=== PATIENT | female | born 2000 | race Caucasian/White ===

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

== ENCOUNTER 2018-01-12 11:03 | Emergency (ER) | payer OTHER ==
[2018-01-12] MEDS ORDERED: Ondansetron INJ* 2 MG/ML VIAL IV ONE (11:37)
[2018-01-12] MEDS ORDERED: NS 0.9% 1000 ML* 1,000 ML IV ONE ×2 (11:37→13:25)
--- OUTSIDE RECORDS SUMMARY | 2018-01-12 11:48 | XMS REPORT | Continuity of Care Document ---
:2000 External Reference #:[id number] Author Name Tera Yates M.D. Address [address] [place] [address] Care Team Providers Name Role Phone Tera Yates MD Primary Care Physician Unavailable Payers Type Date Identification Numbers Payment Provider Subscriber Effective: Policy Number: [id number] Alverto Ogden 2015 [employer] PayID: [id number] [address] [address] [place] [address] Effective: 2013 Policy Number: [place] Megan Ogden [id number] Expires: 2013 PayID: [id number] [address] [address] [place] [address] Effective: 2014 Policy Number: [id number] Medicaid [place] Megan Ogden Expires: 2014 PayID: [id number] [address] [place] [address] Advance Directives Description No Information Available Problems Date Description Provider Status Onset: 02/14/2016 Headache Tera Yates M.D. Active Onset: 02/14/2016 Allergic rhinitis Tera Ytaes M.D. Active Family History Date Family Member(s) Problem(s) Comments Father No Current Problems Mother No Current Problems Social History Type Date Description Comments Sex Unknown Tobacco Use Start: Unknown Patient has never smoked Smoking Status Reviewed: 12/23/17 Patient has never smoked Allergies, Adverse Reactions, Alerts Description No Known Drug Allergies Medications Medication Date Status Form Strength Qnty SIG Indications Ordering Provider Mirena (52 MG) / Active IUD 20mcg/24HR Unknown 0000 Metronidazole 07/25/ Hx Tablets 500mg 30tabs 1 tablet Ana 2018 - three Raffa, 08/05/ times a M.D. 2017 day for 10 days for C. diff. infection . No Active 02/19/ Hx Unknown Medications 2016 - 2016 No Active 05/25/ Hx Unknown Medications 2016 - 2016 Cephalexin 05/20/ Hx Capsules 500mg 15caps 1 by R39.15 Paramjit 2017 - mouth Snedeker, 05/25/ three M.D. 2017 times a day for 5 days No Active 11/27/ Hx Unknown Medications 2014 - 2016 No Active 04/13/ Hx Unknown Medications 2014 - 2014 Keflex 04/13/ Hx Capsules 500mg 21caps 1 capsule 704.8 Rosalind 2014 - Hermelinda Meraz 11/26/ times a 2014 day for 7 days. Ibuprofen / Hx Tablets 200mg 4 tab at Unknown 0000 - 7:00am 2016 Medications Administered in Office Medication Date Status Form Strength Qnty SIG Indications Ordering Provider Immunization 02/19/ Administered Injection Tera GSunil Adminstration 2+ 2016 [place] Single Or M.DSunil Combination Immunization 02/19/ Administered Injection Tera G. Administration 2016 [place] Single Or M.DSunil Combination Immunization 02/13/ Administered Injection Tera G. Administration 2015 [place] Single Or M.DSunil Combination Immunization 01/17/ Administered Injection Tera G. Adminstration 2+ 2014 [place] Single Or M.DSunil Combination Immunization 01/17/ Administered Injection Tera G. Administration 2014 [place] Single Or M.D. Combination Immunization 04/13/ Administered Injection Rosalind Administration 2014 Hermelinda Meraz Single Or Combination Immunizations CPT Code Status Date Vaccine Lot # [id number] Given 02/19/2017 Flu Quadrivalent [id number] 93483 Given 02/19/2017 Meningococcal B Vaccine [id number] 42936 Given 02/14/2016 Flu Quadrivalent [id number] 74510 Given 01/17/2015 Menactra [id number] 90606 Given 01/17/2015 Flu Quadrivalent [id number] 90850 Given 04/13/2014 Flu Quadrivalent [id number] 74061 Given 02/19/2014 MMR Vaccine, Live, For Subcutaneous Use 52857 Given 12/30/2012 Influenza Virus Vaccine, Split Virus, 6-35 Months Age Intramuscul 28657 Given 12/30/2012 Gardasil 57199 Given 03/01/2012 Gardasil 02887 Given 12/29/2011 Gardasil 85470 Given 12/29/2011 Influenza Virus Vaccine, Split Virus, 6-35 Months Age Intramuscul 19561 Given 12/25/2010 Varicella (Chicken Pox) Vaccine 28252 Given 04/23/2009 Influenza Virus Vaccine, Pandemic Formulation, Live, Intranasal 03623 Given 12/20/2008 Varicella (Chicken Pox) Vaccine 37804 Given 12/20/2008 Tdap 69674 Given 12/21/2007 Menactra 59199 Given 12/21/2007 Hepatitis A Pediatric 45936 Given 12/15/2006 Hepatitis A Pediatric 16679 Given 02/20/2004 DTaP Vaccine Younger Than 7 46098 Given 02/20/2004 Polio Injectable 31215 Given 12/13/2001 DTaP Vaccine Younger Than 7 12282 Given 12/13/2001 Hib Vaccine 48827 Given 10/29/1999 Varicella (Chicken Pox) Vaccine 54928 Given 10/29/1999 MMR Vaccine, Live, For Subcutaneous Use 53084 Given 1998 Hepatitis B Vaccine Pediatric/Adolescent 70353 Given 1998 Polio Injectable 62276 Given 1998 DTaP Vaccine Younger Than 7 06031 Given 1998 Hib Vaccine 00922 Given 1998 Hib Vaccine 90955 Given 1998 DTaP Vaccine Younger Than 7 25194 Given 1998 Polio Injectable 28131 Given 1998 Hib Vaccine 07598 Given 1998 Hepatitis B Vaccine Pediatric/Adolescent 08218 Given 1998 Polio Injectable 28053 Given 1998 DTaP Vaccine Younger Than 7 18014 Given 1998 Hib Vaccine 37646 Given 1998 Hepatitis B Vaccine Pediatric/Adolescent Vital Signs Date Vital Result Comment 12/23/2017 9:14am Body Temperature 98.4 F Heart Rate 61 /min Respiratory Rate 12 /min BP Systolic 103 mmHg BP Diastolic 59 mmHg Weight 117.00 lb Weight 53.071 kg Height 66.5 inches 5'6.50" BMI (Body Mass Index) 18.6 kg/m2 Body Mass Index Percentile 11 % Height Percentile 81 % Weight Percentile 28th 12/18/2017 10:58am Body Temperature 97.6 F Heart Rate 126 /min Respiratory Rate 20 /min BP Systolic 113 mmHg BP Diastolic 77 mmHg Weight 112.00 lb Weight 50.803 kg Height 66.5 inches 5'6.50" BMI (Body Mass Index) 17.8 kg/m2 Body Mass Index Percentile 5 % Height Percentile 81 % Weight Percentile 08/06/2017 8:45am Body Temperature 98.8 F Heart Rate 72 /min Respiratory Rate 12 /min BP Systolic 98 mmHg BP Diastolic 62 mmHg Weight 110.50 lb Weight 50.123 kg Height 66.5 inches 5'6.50" BMI (Body Mass Index) 17.6 kg/m2 Body Mass Index Percentile 4 % Height Percentile 81 % Weight Percentile 07/24/2017 11:53am Body Temperature 98.2 F Heart Rate 77 /min Respiratory Rate 12 /min BP Systolic 115 mmHg BP Diastolic 71 mmHg Weight 109.69 lb Weight 49.754 kg Height 66.5 inches 5'6.50" BMI (Body Mass Index) 17.4 kg/m2 Body Mass Index Percentile 3 % Height Percentile 81 % Weight Percentile 02/19/2017 9:19am Body Temperature 98.7 F Heart Rate 61 /min Respiratory Rate 12 /min BP Systolic 94 mmHg BP Diastolic 63 mmHg Blood Pressure Percentile 0 % Weight 113.38 lb Weight 51.427 kg Height 66.5 inches 5'6.50" BMI (Body Mass Index) 18.0 kg/m2 Body Mass Index Percentile 7 % Height Percentile 81 % Weight Percentile 06/06/2016 4:05pm Body Temperature 98.6 F Heart Rate 76 /min Respiratory Rate 12 /min BP Systolic 113 mmHg BP Diastolic 68 mmHg Blood Pressure Percentile 0 % Weight 115.88 lb Weight 52.561 kg Height 66.5 inches 5'6.50" BMI (Body Mass Index) 18.4 kg/m2 Body Mass Index Percentile 12 % Height Percentile 81 % Weight Percentile 05/20/2016 11:39am Body Temperature 98.9 F Heart Rate 66 /min Respiratory Rate 12 /min BP Systolic 116 mmHg BP Diastolic 68 mmHg Blood Pressure Percentile 60 % Weight 118.69 lb Weight 53.837 kg Height 66.5 inches 5'6.50" BMI (Body Mass Index) 18.9 kg/m2 Body Mass Index Percentile 17 % Height Percentile 81 % Weight Percentile 39 02/14/2016 9:46am Body Temperature 98.6 F Heart Rate 67 /min Respiratory Rate 12 /min BP Systolic 107 mmHg BP Diastolic 69 mmHg Blood Pressure Percentile 27 % Weight 119.88 lb Weight 54.375 kg Height 66.25 inches 5'6.25" BMI (Body Mass Index) 19.2 kg/m2 Body Mass Index Percentile 22 % Height Percentile 79 % Weight Percentile 42nd 07/19/2015 9:51am Body Temperature 98.5 F Heart Rate 108 /min Respiratory Rate 16 /min BP Systolic 116 mmHg BP Diastolic 79 mmHg Blood Pressure Percentile 0 % Weight 113.00 lb Weight 51.257 kg Weight Percentile 3001/17/2015 11:16am Body Temperature 98.4 F Heart Rate 66 /min Respiratory Rate 12 /min BP Systolic 106 mmHg BP Diastolic 73 mmHg Blood Pressure Percentile 0 % Weight 113.19 lb Weight 51.342 kg Height 66.25 inches 5'6.25" BMI (Body Mass Index) 18.1 kg/m2 Body Mass Index Percentile 14 % Height Percentile 80 % Weight Percentile 3311/27/2014 2:08pm Body Temperature 98.3 F Heart Rate 72 /min Respiratory Rate 12 /min BP Systolic 92 mmHg BP Diastolic 60 mmHg Blood Pressure Percentile 2 % Weight 113.00 lb Weight 51.257 kg Height 66.25 inches 5'6.25" BMI (Body Mass Index) 18.1 kg/m2 Body Mass Index Percentile 14 % Height Percentile 80 % Weight Percentile 3404/13/2014 1:46pm Body Temperature 97.9 F Heart Rate 73 /min Respiratory Rate 12 /min BP Systolic 109 mmHg BP Diastolic 69 mmHg Blood Pressure Percentile 34 % Weight 112.00 lb Weight 50.803 kg Height 66.25 inches 5'6.25" BMI (Body Mass Index) 17.9 kg/m2 Body Mass Index Percentile 16 % Height Percentile 81 % Weight Percentile 3608/24/2013 1:00pm Heart Rate 70 /min Respiratory Rate 14 /min BP Systolic 97 mmHg BP Diastolic 67 mmHg Weight 109.62 lb Weight 49.714 kg 08/18/2013 1:00pm Heart Rate 85 /min Respiratory Rate 14 /min BP Systolic 101 mmHg BP Diastolic 71 mmHg Weight 111.31 lb Weight 50.485 kg 08/04/2013 1:00pm Heart Rate 69 /min Respiratory Rate 12 /min BP Systolic 109 mmHg BP Diastolic 74 mmHg Weight 107.69 lb Weight 48.852 kg 12/30/2012 1:00pm Heart Rate 73 /min Respiratory Rate 16 /min BP Systolic 111 mmHg BP Diastolic 75 mmHg Weight 106.69 lb Weight 48.398 kg Height 65.75 inches 04/12/2012 12:00pm Heart Rate 78 /min Respiratory Rate 18 /min BP Systolic 101 mmHg BP Diastolic 64 mmHg Weight 98.56 lb Weight 44.706 kg 03/15/2012 12:00pm Heart Rate 75 /min Respiratory Rate 12 /min BP Systolic 104 mmHg BP Diastolic 64 mmHg Weight 99.38 lb Weight 45.087 kg 01/27/2012 1:00pm Heart Rate 96 /min Respiratory Rate 16 /min BP Systolic 108 mmHg BP Diastolic 70 mmHg Weight 97.50 lb Weight 44.225 kg 01/06/2012 1:00pm Heart Rate 70 /min Respiratory Rate 20 /min BP Systolic 110 mmHg BP Diastolic 68 mmHg Weight 99.00 lb Weight 44.906 kg 01/02/2012 1:00pm Heart Rate 73 /min Respiratory Rate 12 /min BP Systolic 103 mmHg BP Diastolic 62 mmHg Weight 97.19 lb Weight 44.089 kg 12/29/2011 1:00pm Heart Rate 77 /min Respiratory Rate 12 /min BP Systolic 97 mmHg BP Diastolic 60 mmHg Weight 97.88 lb Weight 44.407 kg Height 64.75 inches 12/23/2011 1:00pm Heart Rate 85 /min Respiratory Rate 12 /min BP Systolic 111 mmHg BP Diastolic 69 mmHg Weight 99.19 lb Weight 44.996 kg 01/30/2011 1:00pm Heart Rate 81 /min Respiratory Rate 16 /min BP Systolic 105 mmHg BP Diastolic 63 mmHg Weight 92.88 lb Weight 42.139 kg 12/25/2010 1:00pm Heart Rate 80 /min Respiratory Rate 12 /min BP Systolic 100 mmHg BP Diastolic 68 mmHg Weight 91.00 lb Weight 41.277 kg Height 62.75 inches 04/23/2009 12:00pm Heart Rate 76 /min Respiratory Rate 16 /min BP Systolic 112 mmHg BP Diastolic 62 mmHg Weight 72.00 lb Weight 32.659 kg 12/20/2008 1:00pm Heart Rate 72 /min Respiratory Rate 20 /min BP Systolic 88 mmHg BP Diastolic 62 mmHg Weight 71.88 lb Weight 32.600 kg Height 56 inches 12/21/2007 1:00pm Heart Rate 72 /min Respiratory Rate 28 /min BP Systolic 82 mmHg BP Diastolic 60 mmHg Weight 64.00 lb Weight 29.030 kg Height 53.75 inches 12/15/2006 1:00pm Heart Rate 72 /min Respiratory Rate 24 /min BP Systolic 72 mmHg BP Diastolic 50 mmHg Weight 57.50 lb Weight 26.082 kg Height 51.75 inches 06/10/2006 12:00pm Heart Rate 86 /min Respiratory Rate 16 /min BP Systolic 90 mmHg BP Diastolic 60 mmHg Weight 55.00 lb Weight 24.948 kg 06/24/2005 12:00pm Heart Rate 84 /min Respiratory Rate 16 /min BP Systolic 98 mmHg BP Diastolic 62 mmHg Weight 50.50 lb Weight 22.906 kg Results Test Date Facility Test Result H/L Range Note Laboratory test 12/23/2017 [facility] .Glucose BLD 96 finding 10 [facility] [place] [address] [phone] .Urinalysis DIP 12/23/2017 [facility] Ua Color yellow Only [address] [place] [address] [phone] Ua Clarity clear Ua Glucose neg Ua Bilirubin neg Ua Ketones neg Ua Specific [place]ma 1.010 Ua Blood Qual neg Ua PH Test Strip 7 Ua Protein neg Ua Urobilinogen neg Ua Nitrate neg Ua Leukocytes ++ CBC Auto Diff 12/18/2017 [facility] White Blood 24.3 10^3/uL High 3.5-10.[address] [place] [address] Red Blood Count 4.69 10^6/uL 4.00-5.40 Hemoglobin 13.6 g/dL 12.0-16.0 Hematocrit 41 % 35-47 Mean Corpuscular Volume 87 fL 80-97 Mean Corpuscular Hemoglobin 29 pg 27-31 Mean Corpuscular HGB Conc 34 g/dL 31-36 Red Cell Distribution Width 13 % 10.5-15 Platelet Count 408 10^3/uL 150-450 Mean Platelet Volume 8.7 um3 7.4-10.4 Abs Neutrophils 22.1 10^3/uL High 1.5-7.7 Abs Lymphocytes 1.1 10^3/uL 1.0-4.8 Abs Monocytes 1.1 10^3/uL High 0-0.8 Abs Eosinophils 0 10^3/uL 0-0.6 Abs Basophils 0 10^3/uL 0-0.2 Abs Nucleated RBC 0 10^3/uL Granulocyte % 91.0 % High 38-83 Lymphocyte % 4.4 % Low 25-47 Monocyte % 4.5 % 0-7 Eosinophil % 0 % 0-6 Basophil % 0.1 % 0-2 Nucleated Red Blood Cells % 0.1 Comp Metabolic Panel 12/18/2017 [facility] Sodium 139 mmol/L 135-[address] [place] [address] Potassium 3.5 mmol/L 3.5-5.0 Chloride 104 mmol/L 101-111 Co2 Carbon Dioxide 22 mmol/L 22-32 Anion Gap 13 mmol/L High 2-11 Calcium 10.7 mg/dL High 8.6-10.3 Albumin 5.7 g/dL High 3.2-5.2 Total Bilirubin 1.60 mg/dL High 0.2-1.0 Glucose 148 mg/dL High 70-100 Blood Urea Nitrogen 14 mg/dL 6-24 Creatinine 0.80 mg/dL 0.51-0.95 BUN/Creatinine Ratio 17.5 8-20 Total Protein 8.4 g/dL 6.4-8.9 Globulin 2.7 g/dL 2-4 Albumin/Globulin Ratio 2.1 1-3 Alkaline Phosphatase 49 U/L 34-104 Alt 28 U/L 7-52 Ast 28 U/L 13-39 Egfr Non- 92.4 >60 Egfr 111.8 >60 1 Laboratory test 12/18/2017 [facility] Lipase < 10 U/L Low 11.0 -82.[address] [place] [address] Laboratory test 12/18/2017 [facility] .Urine II neg finding [address] [place] [address] [phone] .Urinalysis DIP Only 12/18/2017 [facility] Ua Color yellow [address] [place], [place] [id number] [phone] Ua Clarity clear Ua Glucose neg Ua Bilirubin neg Ua Ketones ++++ Ua Specific Alma 1.020 Ua Blood Qual Hem Tr Ua PH Test Strip 6 Ua Protein ++++ Ua Urobilinogen neg Ua Nitrate neg Ua Leukocytes neg Laboratory test 07/30/2017 [facility] Partial 28.8 seconds 26.0-36.[address] [place] [address] PTT CBC Auto Diff 07/30/2017 [facility] White Blood 23.0 10^3/uL High 3.5-10.[address] [place] [address] Red Blood Count 4.46 10^6/uL 4.0-5.4 Hemoglobin 12.8 g/dL 12.0-16.0 Hematocrit 38 % 35-47 Mean Corpuscular Volume 86 fL 80-97 Mean Corpuscular Hemoglobin 29 pg 27-31 Mean Corpuscular HGB Conc 34 g/dL 31-36 Red Cell Distribution Width 13 % 10.5-15 Platelet Count 368 10^3/uL 150-450 Mean Platelet Volume 8.9 um3 7.4-10.4 Abs Neutrophils 20.3 10^3/uL High 1.5-7.7 Abs Lymphocytes 1.0 10^3/uL 1.0-4.8 Abs Monocytes 1.6 10^3/uL High 0-0.8 Abs Eosinophils 0 10^3/uL 0-0.6 Abs Basophils 0.1 10^3/uL 0-0.2 Abs Nucleated RBC 0 10^3/uL Granulocyte % 88.3 % High 38-83 Lymphocyte % 4.5 % Low 25-47 Monocyte % 6.9 % 0-7 Eosinophil % 0 % 0-6 Basophil % 0.3 % 0-2 Nucleated Red Blood Cells % 0 Laboratory test finding 07/30/2017 [facility] Lipase < 10 U/L Low 11.0-82.[address] [place] [address] C Reactive Protein < 1.00 mg/L < 5.00 2 Troponin-I (TnI) 0.00 ng/mL <0.04 HCG 5.44 mIU/mL 3 Lactic Acid 2.6 mmol/L High 0.5-2.0 4 Comp Metabolic Panel 07/30/2017 [facility] Sodium 142 mmol/L 139-[address] [place] [address] Potassium 3.3 mmol/L Low 3.5-5.0 Chloride 107 mmol/L 101-111 Co2 Carbon Dioxide 21 mmol/L Low 22-32 Anion Gap 14 mmol/L High 2-11 Glucose 142 mg/dL High 70-100 Blood Urea Nitrogen 10 mg/dL 6-24 Creatinine 0.71 mg/dL 0.51-0.95 BUN/Creatinine Ratio 14.1 8-20 Calcium 10.1 mg/dL 8.6-10.3 Total Protein 7.4 g/dL 6.4-8.9 Albumin 4.8 g/dL 3.2-5.2 Globulin 2.6 g/dL 2-4 Albumin/Globulin Ratio 1.8 1-3 Total Bilirubin 0.70 mg/dL 0.2-1.0 Alkaline Phosphatase 39 U/L 34-104 Alt 14 U/L 7-52 Ast 19 U/L 13-39 Egfr Non- 106.0 >60 Egfr 136.4 >60 5 GC/Chlamydia 07/24/2017 [facility] Chlamydia Negative Negative Amplified Rna [address] [place] [address] Neisseria gonorrhoeae (GC) Rna Negative Negative Laboratory test 07/24/2017 [facility] C Difficile PCR SEE RESULT [address] [place] [address] Stool Culture <pending> Stool Occult 07/24/2017 [facility] Stool Occult SEE RESULT 7 Blood Diag [address] Blood, [place] [address] Laboratory test 02/19/2017 [facility] .Urine II neg finding [address] [place] [address] [phone] GC/Chlamydia 02/19/2017 [facility] Chlamydia Negative Negative Amplified Rna [address] [place] [address] Neisseria gonorrhoeae (GC) Rna Negative Negative .CBC W/Auto 02/19/2017 [facility] White Blood 5.0 Differential 10 [facility] [place] [place] [address] CNT [phone] Absolute Lymphocytes 1.7 Absolute Monocytes 0.6 Absolute Neutrophils Auto CNT 2.7 Lymph% 34.1 Carbon% Auto Count BLD 11.1 Neutrophil % 54.8 RBC Red Blood Count 4.49 Hemoglobin Blood 13.2 Hematocrit 41.6 MCV (Corpuscular Volume) 92.7 MCH (Corpuscular Hemoglobin) 29.4 MCHC (Corpuscular Hemog Conc) 31.7 RDW 12.8 Platelet Count Blood Auto CNT 301. MPV 8.6 Laboratory test 06/02/2016 [facility] Rapid Strep Negative Negative [address] [place] [address] .Urine Culture 05/20/2016 [facility] Urine Comment negative [address] [place] [address] [phone] .Urinalysis DIP 05/20/2016 [facility] Ua Color yellow Only [address] [place] [address] [phone] Ua Clarity clear Ua Glucose neg Ua Bilirubin neg Ua Ketones neg Ua Specific [place] 1.010 Ua Blood Qual neg Ua PH Test Strip 8.5 Ua Protein tr Ua Urobilinogen neg Ua Nitrate neg Ua Leukocytes tr Laboratory test finding 05/20/2016 [facility] .Urine II neg [address] [place] [address] [phone] .CBC W/Auto 02/14/2016 [facility] White Blood 7.3 Differential [address] [place] [address] CNT [phone] Absolute Lymphocytes 2.0 Absolute Monocytes 0.7 Absolute Neutrophils Auto CNT 4.6 Lymph% 27.2 Carbon% Auto Count BLD 9.7 Neutrophil % 63.1 RBC Red Blood Count 4.62 Hemoglobin Blood 14.0 Hematocrit 40.7 MCV (Corpuscular Volume) 88.1 MCH (Corpuscular Hemoglobin) 30.3 MCHC (Corpuscular Hemog Conc) 34.4 RDW 12.0 Platelet Count Blood Auto CNT 253 MPV 7.8 Laboratory test 02/02/2016 [facility] Urine Culture And SEE RESULT [address] [place] [address] GC/Chlamydia 01/17/2015 [facility] Chlamydia Negative Negative Amplified Rna [address] [place] [address] Neisseria gonorrhoeae (GC) Rna Negative Negative 10 .CBC W/Auto 01/17/2015 [facility] White Blood 8.5 Differential 10 [facility] [place] [place] [address] CNT [phone] Absolute Lymphocytes 1.9 Absolute Monocytes 0.8 Absolute Neutrophils Auto CNT 5.8 Lymph% 22.4 Carbon% Auto Count BLD 9.6 Neutrophil % 68.0 RBC Red Blood Count 5.02 Hemoglobin Blood 14.0 Hematocrit 42.5 MCV (Corpuscular Volume) 84.7 MCH (Corpuscular Hemoglobin) 27.9 MCHC (Corpuscular Hemog Conc) 32.9 RDW 13.2 Platelet Count Blood Auto CNT 257. MPV 8.0 Laboratory test 10/03/2014 [facility] Throat Beta Strep SEE RESULT [address] [place] [address] Laboratory test 08/24/2013 [facility] Urine HCG, negative finding Qualitative Laboratory test 08/05/2013 [facility] Absolute Basos 0 10^3/ul 0- 0.2 finding (auto) Absolute Eos (auto) 0 10^3/ul 0-0.6 Absolute Lymphs (auto) 2.0 1.0-4.8 Absolute Monos (auto) 0.5 0-0.8 Absolute Neuts (auto) 4.4 1.5-7.7 Absolute Nucleated RBC 0 10^3/ul Albumin 4.8 3.2-5.2 Albumin/Globulin Ratio 1.9 1-3 Alkaline Phosphatase 68 U/L 34-104 Alt 12 U/L 7-52 Anion Gap 7 mmol/L 2-11 Ast 16 U/L 13-39 BUN 13 mg/dL 6-24 BUN/Creatinine Ratio 20.6 High 8-20 Baso % 0.7 0-2 Calcium 9.7 8.6-10.3 Carbon Dioxide 26 mmol/L 22-32 Chloride 106 mmol/L 101-111 Cholesterol 160 mg/dL Creatinine 0.63 0.51-0.95 Eos % 0.4 0-6 Globulin 2.5 2-4 Glucose 84 mg/dL 70-100 HDL Cholesterol 46.0 Hct 38 % 35-47 Hgb 12.5 12.0-16.0 LDL Cholesterol 98 mg/dL Lymph % 28.5 25-47 MCH 27 pg 27-31 MCHC 33 g/dL 31-36 MCV 80 fL 80-97 MPV 8 um3 7.4-10.4 Magnesium 2.0 1.9-2.7 Carbon % 7.7 1-9 Neut % 62.7 38-83 Nucleated RBC % 0 Plt Count 340 10^3/ul 150-450 Potassium 4.3 3.7-5.6 RBC 4.72 4.0-5.4 RDW 15 % 10.5-15 Sodium 139 mmol/L 133-145 TSH 0.88 0.34-5.60 Thyroxine (T4) 9.16 6.09-12.23 Total Bilirubin 1.20 High 0.2-1.0 Total Protein 7.3 6.4-8.9 Triglycerides 81 mg/dL Vit D 1,25-Dihydroxy 43 pg/mL 24-86 WBC 7.0 4.8-10.8 Laboratory test finding 12/30/2012 [facility] Granulocytes # 4.3 1.5-8.0 Granulocytes (%) 66.5 38.0-83.0 Hematocrit 40.3 36.0-46.0 Hemoglobin 13.2 12.0-16.0 Lymphocytes # 1.5 1.2-5.2 Lymphocytes % 23.8 20.0-45.0 Mean Corpuscular Hemoglobin 28.1 26.0-34.0 Mean Corpuscular Hemoglobin Concent 32.8 31.0-37.0 Mean Platelet Volume 8.7 7.4-10.4 Monocytes # 0.6 0.0-0.8 Monocytes % 9.7 High 1.0-9.0 Platelet Count 254 x10.3/ul 150-350 Poc Mean Corpuscular Volume 85.8 78.0-102.0 Red Blood Count 4.70 3.90-5.10 Red Cell Distribution Width 14 % 10.5-15.0 White Blood Count 6.5 4.5-13.5 Laboratory test 03/15/2012 [facility] Urine HCG, negative finding Qualitative Laboratory test 01/28/2012 [facility] Throat Culture Negative finding Laboratory test 01/14/2012 [facility] Urine HCG, negative finding Qualitative Laboratory test 01/02/2012 [facility] Absolute 3.2 1.5-7.7 finding Neutrophil Ebv Capsid Ag IgG Ab Positive Negative Ebv Capsid Ag IgM Ab Negative Negative Ebv Interpretation See Comment Ebv Nuclear Antigen Positive Negative Hematocrit 36 % 35-45 Hemoglobin 11.6 11.5-15.5 Lymphocytes % 40 % 25-47 Mean Corpuscular Hemoglobin 27 pg 27-31 Mean Corpuscular Hemoglobin Concent 33 g/dL 32-36 Mean Corpuscular Volume 84 um3 79-97 Mean Platelet Volume 8.3 7.4-10.4 Monoscreen Positive High Negative Neutrophils % 60 % 38-83 Platelet Count 300 CUMM 150-450 Red Blood Cell Morphology Normal Red Blood Count 4.24 4.0-5.2 Red Cell Distribution Width 13 % 10.5-15 White Blood Count 5.9 4.8-10.8 Laboratory test 01/31/2011 [facility] Throat Culture negative finding Laboratory test 12/25/2010 [facility] Granulocytes # 3.9 1.5-8.0 finding Granulocytes (%) 60.5 38.0-83.0 Hematocrit 41.9 36.0-46.0 Hemoglobin 13.3 12.0-16.0 Lymphocytes # 1.9 1.2-5.2 Lymphocytes % 29.6 20.0-45.0 Mean Corpuscular Hemoglobin 26.1 26.0-34.0 Mean Corpuscular Hemoglobin Concent 31.7 31.0-37.0 Mean Platelet Volume 7.9 7.4-10.4 Monocytes # 0.6 0.0-0.8 Monocytes % 9.9 High 1.0-9.0 Platelet Count 290 x10.3/ul 150-350 Poc Mean Corpuscular Volume 82.4 78.0-102.0 Red Blood Count 5.09 3.90-5.10 Red Cell Distribution Width 12.1 10.5-15.0 White Blood Count 6.5 4.5-13.5 1 Because ethnic data is not always readily available, this report includes an eGFR for both -Americans and non- Americans. The National Kidney Disease Education Program (NKDEP) does not endorse the use of the MDRD equation for patients that are not between the ages of 18 and 70, are , have extremes of body size, muscle mass, or nutritional status, or are non- or non-. According to the National Kidney Foundation, irrespective of diagnosis, the stage of the disease is based on the level of kidney function: Stage Description GFR(mL/min/1.73 m(2)) 1 Kidney damage with normal or decreased GFR 90 2 Kidney damage with mild decrease in GFR 60-89 3 Moderate decrease in GFR 30-59 4 Severe decrease in GFR 15-29 5 Kidney failure <15 (or dialysis) 2 Acute inflammation: >10.00 3 <5.0 Negative 5.0 - 25.0 Indeterminate (Repeat testing recommended after 72 hours) >25.0 Positive Perimenopausal women can display HCG levels of up to 20 mIU/mL 4 Critical Result LACT:2.6 Called to [id number] at: 16:30:05 by:[id number] Read back by:[id number] [facility] Severe Sepsis and Septic Shock Management Bundle Measure requires all lactic acids initially measuring >2.0 mmol/L be repeated. 5 Because ethnic data is not always readily available, this report includes an eGFR for both -Americans and non- Americans. The National Kidney Disease Education Program (NKDEP) does not endorse the use of the MDRD equation for patients that are not between the ages of 18 and 70, are , have extremes of body size, muscle mass, or nutritional status, or are non- or non-. According to the National Kidney Foundation, irrespective of diagnosis, the stage of the disease is based on the level of kidney function: Stage Description GFR(mL/min/1.73 m(2)) 1 Kidney damage with normal or decreased GFR 90 2 Kidney damage with mild decrease in GFR 60-89 3 Moderate decrease in GFR 30-59 4 Severe decrease in GFR 15-29 5 Kidney failure <15 (or dialysis) 6 SEE RESULT BELOW Name: MEGAN OGDEN : [address]: Shanda Chamorro NP Acct: [id number] Unit: [id number] AGE: 17 Location: [facility] Re07/24/17 SEX: F Status: REG REF SPEC: [id number] JEB: 07/24/17-125[facility] DR: Shanda Chamorro NP REQ: [id number] RECD: 07/24/17 STATUS: RES _ SOURCE: STOOL SPDESC: ORDERED: Occult BlAdi C. diff PCR, Stool Culture COMMENTS: [id number] Procedure Result Reported Site Stool Culture PENDING Stool Specimen Description Final 07/24/17- 1654 ML Stool Color Brown Stool Form Nonformed Stool Consistency Liquid Shiga Toxin 1 2 PENDING C. difficile PCR PENDING Stool Occult Blood (1) PENDING * ML - Main Lab . END OF REPORT DEPARTMENT OF PATHOLOGY, [address] [place] [address] Joshua Saldana M.D. Director KEYUR # [id number] 7 SEE RESULT BELOW Name: MEGAN OGDEN : [address]: Shanda Chamorro NP Acct: [id number] Unit: [id number] AGE: 17 Location: [facility] Re07/24/17 SEX: F Status: REG REF SPEC: [id number] JEB: 07/24/17-[address]: Shanda Chamorro NP REQ: [id number] RECD: 07/24/17 STATUS: COMP _ SOURCE: STOOL SPDESC: ORDERED: Occult Bl, Diag, C. diff PCR, Stool Culture COMMENTS: [id number] Unable to perform Shiga Toxin testing. Specimen collection requirements were not met. Stool for Shiga Toxin testing must be received by the laboratory within 2 hours of collection or placed in [employer] transport medium. *please interpret stool culture result with caution* Stool specimen was not placed into appropriate transport medium within recommended time-frame. Testing may be less Sensitive. Call to Answering Service by [id number] at 1737 on 07/24/17. Call to Answering Service by [id number] at 1953 on 07/24/17. Verbal to Dr Mario Koch by [id number] at 2038 on 07/24/17. Results read back accurately. Procedure Result Reported Site Stool Culture Final 07/26/17- 1207 ML Result No enteric pathogens isolated Testing for Salmonella, Shigella, Aeromonas, Plesiomonas, Yersinia and Campylobacter are included in a Stool Culture. Vibrio spp not routinely tested for in a stool culture. If testing is desired, please request specifically when placing test order. CONTINUED ON NEXT PAGE DEPARTMENT OF PATHOLOGY, [address] [place] [address] Joshua Saldana M.D. Director IWONAAR # [id number] Patient: MEGAN OGDEN [id number] (Continued) Specimen: [id number] Collected: 07/24/17-1255 Received: 07/24/17-1606 (Continued) Procedure Result Reported Site Stool Culture Final (continued) 07/26/17- 7 Sensitivities not routinely performed on stool isolates, as antibiotics may prolong the carriage rate of bacteria. Please contact the microbiology lab if sensitivities are required. Stool Specimen Description Final 07/24/17- 1654 ML Stool Color Brown Stool Form Nonformed Stool Consistency Liquid Shiga Toxin 1 2 Final 07/24/17- 165 ML Test not performed C. difficile PCR Final 07/24/17- 1732 ML Organism 1 027 Presumptive NEGATIVE Organism 2 Toxigenic C.diff POSITIVE Stool Occult Blood (1) Final 07/24/17- 1656 ML Stool Occult Blood Negative Collection Date (1) 07/24/17 * ML - Main Lab . END OF REPORT DEPARTMENT OF PATHOLOGY, [address] [place] [address] Joshua Saldana M.D. Director ADAN # [id number] Casting Trucker: [id number] JOHNNIE SABILLON 9 SEE RESULT BELOW Name: MEGAN OGDEN : [address]: Graham Reis MD Acct: [id number] Unit: [id number] AGE: 15 Location: [facility] Re02/02/16 SEX: F Status: DEP ER SPEC: [id number] JEB: 02/02/16-12[address] [facility] [address]: Graham Reis MD REQ: [id number] RECD: 02/03/16123 STATUS: CHRISS MARTIN DR: Tera Yates MD _ SOURCE: URINE SPDESC: ORDERED: Urine Culture Procedure Result Reported Site Urine Culture Final 02/04/16- 1131 ML Organism 1 STAPHYLOCOCCUS SAPROPHYTICUS [place] Count 75-100,000 (Many) CFU/ML Routine sensitivity testing of urine isolates of S. saprophyticus is not advised, because infections respond to concentrations achieved in urine of antimicrobial agents commonly used to treat acute, uncomplicated urinary tract infections (e.g. nitrofurantoin, trimethoprim+/- sulfamethoxazole, or a fluoroquinolone). NCC April 2001 * ML - MAIN LAB ([facility]) . END OF REPORT * ML=Testing performed at Main Lab DEPARTMENT OF PATHOLOGY, [address] [place] [address] Joshua Saldana M.D. Director [facility] # [id number] 10 Female urine specimens have been self-validated by [facility] and have been granted conditional assay approval by [facility]. 11 SEE RESULT BELOW Name: MEGAN OGDEN : [address]: Anastasia Caruso MD Acct: [id number] Unit: [id number] AGE: 14 Location: [facility] Re10/03/14 SEX: F Status: DEP ER SPEC: [id number] JEB: 10/03/14-1530 [facility] [address]: Anastasia Caruso MD REQ: [id number] RECD: 10/04/14 STATUS: CHRISS MARTIN DR: Rosalind Meraz MD _ SOURCE: THROAT SPDESC: ORDERED: Throat Beta Str Procedure Result Verified Site Throat Beta Strep Culture Final 10/06/14- 0800 ML Negative For Group A Beta Streptococcus * ML - MAIN LAB ([facility]) . END OF REPORT * ML=Testing performed at Main Lab DEPARTMENT OF PATHOLOGY, [address] [place] [address] Joshua Saldana M.D. Director [facility] # [id number] Procedures Date Code Description Status 12/23/2017 69550 Collection Of Capillary Blood Specimen Completed 02/19/2017 17946 Vision Screening Completed 02/19/2017 49574 Admin Patient Focused Health Risk Assessment Instrument Completed 02/19/2017 53050 Admin Patient Focused Health Risk Assessment Instrument Completed 02/19/2017 58425 Brief Emotional/Behav Assessment W/ Scoring Doc Per Completed Standard Inst 02/19/2017 33521 Hearing Screen, Pure Tone, Air Completed 02/19/2017 61499 Collection Of Capillary Blood Specimen Completed 02/14/2016 67024 Vision Screening Completed 02/14/2016 35456 Hearing Screen, Pure Tone, Air Completed 02/14/2016 61557 Collection Of Capillary Blood Specimen Completed 01/17/2015 37861 Vision Screening Completed 01/17/2015 56200 Hearing Screen, Pure Tone, Air Completed 01/17/2015 46851 Collection Of Capillary Blood Specimen Completed Encounters Type Date Location Provider Dx Diagnosis Office Visit 12/23/2017 9:15a [facility] Tera Yates, L72.0 Epidermal cyst M.D. G43.A0 Cyclical vomiting, not intractable Office Visit 12/18/2017 11:00a [facility] Hellen A09 Infectious MD Michelle gastroenteritis and colitis, unspecified E86.0 Dehydration Office Visit 08/06/2017 8:45a [facility] Shanda A04.72 Enterocolitis d/t Pedro Pablo, AMBROSE Clostridium difficile, not spcf as recur Office Visit 07/24/2017 11:45a [facility] Shanda R19.7 Diarrhea, Pedro Pablo, [employer] ADMINISTRATOR unspecified R11.2 Nausea with vomiting, unspecified R10.30 Lower abdominal pain, unspecified Office Visit 02/19/2017 9:00a [facility] Tera Yates, Z00.00 Encntr for M.Mildred general adult medical exam w/o abnormal findings Z11.3 Encntr screen for infections w sexl mode of transmiss G44.209 Tension-type headache, unspecified, not intractable R45.82 Worries Z13.89 Encounter for screening for other disorder Z71.89 Other specified counseling Office Visit 06/06/2016 4:00p [place] Debbie Galo J11.1 Flu due to Hermelinda Murphy unidentified influenza virus w oth resp manifest Office Visit 05/20/2016 12:00p [facility] Paramjit Drake, R39.15 Urgency of M.DSunil urination Office Visit 02/14/2016 9:30a [facility] Tera Silva Z00.129 Encntr for routine Hermelinda Yates child health exam w/o abnormal findings R51 Headache J30.9 Allergic rhinitis, unspecified Office Visit 07/19/2015 10:00a [facility] Tera Silva J00 Acute nasopharyngitis Hermelinda Yates [common cold] Office Visit 01/17/2015 11:15a [facility] Tera Silva Z00.129 Encntr for routine Hermelinda Yates child health exam w/o abnormal findings Office Visit 11/27/2014 2:00p [facility] Lisa Collazo V70.3 Examination Other Hermelinda [facility] For Administrative Purpose Office Visit 04/13/2014 1:45p [facility] Rosalind Meraz 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 at [facility]12/23/2017 - Tera Yates M.D.L72.0 Epidermal cystReferral:Jennifer Pena MD, NhgpcmhprquF93.A0 Cyclical vomiting, not intractableComments:plan monitor for now . labs today are normal. two episodes may represent separate illnesses. if continues to have episodes of n/v/d will cx stool, including cdiff.
--- OUTSIDE RECORDS SUMMARY | 2018-01-12 11:48 | XMS REPORT | Continuity of Care Document ---
:2000 External Reference #:[id number] Author Name Hellen Martinez MD Address [address] [place] [address] Care Team Providers Name Role Phone Tera Yaets MD Primary Care Physician Unavailable Payers Type Date Identification Numbers Payment Provider Subscriber Effective: Policy Number: [id number] Alverto Ogden 2015 [employer] PayID: [id number] [address] [address] [place] [address] Effective: 2013 Policy Number: [place] [employer] Megan Ogden [id number] Expires: 2013 PayID: [id number] [address] [address] [place] [address] Effective: 2014 Policy Number: [id number] Medicaid [place] Megan Ogden Expires: 2014 PayID: [id number] [address] [place] [address] Advance Directives Description No Information Available Problems Date Description Provider Status Onset: 02/14/2016 Headache Tera Yates M.D. Active Onset: 02/14/2016 Allergic rhinitis Tera Yates M.D. Active Family History Date Family Member(s) Problem(s) Comments Father No Current Problems Mother No Current Problems Social History Type Date Description Comments Sex Unknown Tobacco Use Start: Unknown Patient has never smoked Smoking Status Reviewed: 07/24/17 Patient has never smoked Allergies, Adverse Reactions, Alerts Description No Known Drug Allergies Medications Medication Date Status Form Strength Qnty SIG Indications Ordering Provider Mirena (52 MG) / Active IUD 20mcg/24HR Unknown 0000 Metronidazole 07/25/ Hx Tablets 500mg 30tabs 1 tablet Ana 2018 - three Raffa, 08/05/ times a M.D. 2018 day for 10 days for C. diff. [...] GSunil Adminstration 2+ 2016 [place] Single Or M.D. Combination Immunization 02/19/ Administered Injection Tera G. Administration 2016 [place] Single Or M.D. Combination Immunization 02/13/ Administered Injection Tera G. Administration 2015 [place] Single Or M.DSunil Combination Immunization 01/17/ Administered Injection Tera G. Adminstration 2+ 2014 [place] Single Or M.D. Combination Immunization 01/17/ Administered Injection Tera G. Administration 2014 [place] Single Or M.D. Combination Immunization 04/13/ Administered Injection Rosalind Administration 2014 Hermelinda Meraz Single Or Combination Immunizations CPT Code Status Date Vaccine Lot # [id number] Given 02/19/2017 Flu Quadrivalent [id number] 16012 Given 02/19/2017 Meningococcal B Vaccine [id number] 11708 Given 02/14/2016 Flu Quadrivalent [id number] 67429 Given 01/17/2015 Menactra [id number] 92751 Given 01/17/2015 Flu Quadrivalent [id number] 33899 Given 04/13/2014 Flu Quadrivalent [id number] 46818 Given 02/19/2014 MMR Vaccine, Live, For Subcutaneous Use 22757 Given 12/30/2012 Influenza Virus Vaccine, Split Virus, 6-35 Months Age Intramuscul 21999 Given 12/30/2012 Gardasil 79395 Given 03/01/2012 Gardasil 10404 Given 12/29/2011 Gardasil 31029 Given 12/29/2011 Influenza Virus Vaccine, Split Virus, 6-35 Months Age Intramuscul 87738 Given 12/25/2010 Varicella (Chicken Pox) Vaccine 67570 Given 04/23/2009 Influenza Virus Vaccine, Pandemic Formulation, Live, Intranasal 17282 Given 12/20/2008 Varicella (Chicken Pox) Vaccine 41447 Given 12/20/2008 Tdap 51239 Given 12/21/2007 Menactra 35715 Given 12/21/2007 Hepatitis A Pediatric 30207 Given 12/15/2006 Hepatitis A Pediatric 40600 Given 02/20/2004 DTaP Vaccine Younger Than 7 21187 Given 02/20/2004 Polio Injectable 38575 Given 12/13/2001 DTaP Vaccine Younger Than 7 88460 Given 12/13/2001 Hib Vaccine 49490 Given 10/29/1999 Varicella (Chicken Pox) Vaccine 40174 Given 10/29/1999 MMR Vaccine, Live, For Subcutaneous Use 53871 Given 1998 Hepatitis B Vaccine Pediatric/Adolescent 81852 Given 1998 Polio Injectable 75837 Given 1998 DTaP Vaccine Younger Than 7 89652 Given 1998 Hib Vaccine 78323 Given 1998 Hib Vaccine 07858 Given 1998 DTaP Vaccine Younger Than 7 09413 Given 1998 Polio Injectable 64479 Given 1998 Hib Vaccine 83201 Given 1998 Hepatitis B Vaccine Pediatric/Adolescent 86720 Given 1998 Polio Injectable 67905 Given 1998 DTaP Vaccine Younger Than 7 06429 Given 1998 Hib Vaccine 61063 Given 1998 Hepatitis B Vaccine Pediatric/Adolescent Vital Signs Date Vital Result Comment 12/18/2017 10:58am Body Temperature 97.6 F Heart Rate 126 /min Respiratory Rate 20 /min BP Systolic 113 mmHg BP Diastolic 77 mmHg Weight 112.00 lb Weight 50.803 kg Height 66.5 inches 5'6.50" BMI (Body Mass Index) 17.8 kg/m2 Body Mass Index Percentile 5 % Height Percentile 81 % Weight Percentile 19th 08/06/2017 8:45am Body Temperature 98.8 F Heart [...] % Height Percentile 81 % Weight Percentile 32nd 05/20/2016 11:39am Body Temperature 98.9 F Heart Rate 66 /min Respiratory Rate 12 /min BP Systolic 116 mmHg BP Diastolic 68 mmHg Blood Pressure Percentile 60 % Weight 118.69 lb Weight 53.837 kg Height 66.5 inches 5'6.50" BMI (Body Mass Index) 18.9 kg/m2 Body Mass Index Percentile 17 % Height Percentile 81 % Weight Percentile 3902/14/2016 9:46am Body Temperature 98.6 F Heart Rate [...] Date Facility Test Result H/L Range Note CBC Auto Diff 12/18/2017 [facility] White Blood 24.3 10^3/uL High 3.5-10.[address] [place] [address] Red Blood Count 4.69 10^6/uL 4.00-5.40 Hemoglobin [...] Cells % 0.1 Comp Metabolic Panel 12/18/2017 [facility] Sodium 139 mmol/L 135-[address] [place] [address] Potassium 3.5 mmol/L 3.5-5.0 Chloride 104 mmol/L [...] Egfr 111.8 >60 1 Laboratory test 12/18/2017 [facility] Lipase < 10 U/L Low 11.0 -82.[address] [place] [address] Laboratory test 12/18/2017 [facility] .Urine II neg finding [address] [place] [address] [phone] .Urinalysis DIP Only 12/18/2017 [facility] Ua Color yellow [address] [place] [address] [phone] Ua Clarity clear Ua Glucose neg Ua Bilirubin neg Ua Ketones ++++ Ua Specific Rickreall 1.020 Ua Blood Qual Hem Tr Ua PH Test Strip 6 Ua Protein ++++ Ua Urobilinogen neg Ua Nitrate neg Ua Leukocytes neg Laboratory test 07/30/2017 [facility] Partial 28.8 seconds 26.0-36.[address] [place] [address] PTT CBC Auto Diff 07/30/2017 [facility] White Blood 23.0 10^3/uL High 3.5-10.[address] [place] [address] Red Blood Count 4.46 10^6/uL 4.0-5.4 Hemoglobin [...] Cells % 0 Laboratory test finding 07/30/2017 [facility] Lipase < 10 U/L Low 11.0-82.[address] [place] [address] C Reactive Protein < 1.00 mg/L < 5.00 2 Troponin-I (TnI) 0.00 ng/mL <0.04 HCG 5.44 mIU/mL 3 Lactic Acid 2.6 mmol/L High 0.5-2.0 4 Comp Metabolic Panel 07/30/2017 [facility] Sodium 142 mmol/L 139-[address] [place] [address] Potassium 3.3 mmol/L Low 3.5-5.0 Chloride 107 [...] >60 Egfr 136.4 >60 5 GC/Chlamydia 07/24/2017 [facility] Chlamydia Negative Negative Amplified Rna [address] [place] [address] Neisseria gonorrhoeae (GC) Rna Negative Negative Laboratory test 07/24/2017 [facility] C Difficile PCR SEE RESULT [address] [place] [address] Stool Culture <pending> Stool Occult 07/24/2017 [facility] Stool Occult SEE RESULT [address] Di[address] Blood, [place] [address] Laboratory test 02/19/2017 [facility] .Urine II neg finding [address] [place] [address] [phone] GC/Chlamydia 02/19/2017 [facility] Chlamydia Negative Negative Amplified Rna [address] [place] [address] Neisseria gonorrhoeae (GC) Rna Negative Negative .CBC W/Auto 02/19/2017 [facility] White Blood 5.0 Differential 10 [facility] [place] [place] [address] CNT [phone] Absolute Lymphocytes 1.7 Absolute Monocytes 0.6 Absolute Neutrophils Auto CNT 2.7 Lymph% 34.1 [place]% Auto Count BLD 11.1 Neutrophil % 54.8 RBC Red Blood Count 4.49 Hemoglobin Blood 13.2 Hematocrit 41.6 MCV (Corpuscular Volume) 92.7 MCH (Corpuscular Hemoglobin) 29.4 MCHC (Corpuscular Hemog Conc) 31.7 RDW 12.8 Platelet Count Blood Auto CNT 301. MPV 8.6 Laboratory test 06/02/2016 [facility] Rapid Strep Negative Negative [address] [place] [address] Laboratory test 05/20/2016 [facility] .Urine II neg finding [address] [place] [address] [phone] .Urinalysis DIP 05/20/2016 [facility] Ua Color yellow Only [address] [place] [address] [phone] Ua Clarity clear Ua Glucose neg Ua Bilirubin neg Ua Ketones neg Ua Specific Rickreall 1.010 Ua Blood Qual neg Ua PH Test Strip 8.5 Ua Protein tr Ua Urobilinogen neg Ua Nitrate neg Ua Leukocytes tr .Urine Culture 05/20/2016 [facility] Urine Comment negative [address] [place] [address] [phone] .CBC W/Auto 02/14/2016 [facility] White Blood 7.3 Differential 10 [facility] [place] [place] [address] CNT [phone] Absolute Lymphocytes 2.0 Absolute Monocytes 0.7 Absolute Neutrophils Auto CNT 4.6 Lymph% 27.2 [place]% Auto Count BLD 9.7 Neutrophil % 63.1 RBC Red Blood Count 4.62 Hemoglobin Blood 14.0 Hematocrit 40.7 MCV (Corpuscular Volume) 88.1 MCH (Corpuscular Hemoglobin) 30.3 MCHC (Corpuscular Hemog Conc) 34.4 RDW 12.0 Platelet Count Blood Auto CNT 253 MPV 7.8 Laboratory test 02/02/2016 [facility] Urine Culture And SEE RESULT [address] [place] [address] GC/Chlamydia 01/17/2015 [facility] Chlamydia Negative Negative Amplified Rna [address] [place] [address] Neisseria gonorrhoeae (GC) Rna Negative Negative 10 .CBC W/Auto 01/17/2015 [facility] White Blood 8.[address] [place] [address] CNT [phone] Absolute Lymphocytes 1.9 Absolute Monocytes 0.8 Absolute Neutrophils Auto CNT 5.8 Lymph% 22.4 [place]% Auto Count BLD 9.6 Neutrophil % 68.0 RBC Red Blood Count 5.02 Hemoglobin Blood 14.0 Hematocrit 42.5 MCV (Corpuscular Volume) 84.7 MCH (Corpuscular Hemoglobin) 27.9 MCHC (Corpuscular Hemog Conc) 32.9 RDW 13.2 Platelet Count Blood Auto CNT 257. MPV 8.0 Laboratory test 10/03/2014 [facility] Throat Beta Strep SEE RESULT [address] [place] [address] Laboratory test 08/24/2013 [facility] Urine HCG, [...] MPV 8 um3 7.4-10.4 Magnesium 2.0 1.9-2.7 [place] % 7.7 1-9 Neut % 62.7 38-83 [...] mIU/mL 4 Critical Result LACT:2.6 Called to [id number] at: 16:30:05 by:[id number] Read back by:[facility] Severe Sepsis and Septic Shock Management Bundle [...] [address]: Shanda Chamorro NP Acct: [id number] Unit: [id number] AGE: 17 Location: [facility] Re07/24/17 SEX: F Status: REG REF SPEC: [id number] JEB: 07/24/17-[address] [facility] [address]: Shanda Chamorro NP REQ: [id number] RECD: 07/24/17 STATUS: RES _ SOURCE: STOOL SPDESC: ORDERED: Occult Bl, Dialucy CSunil diff PCR, Stool Culture COMMENTS: [id number] Procedure Result Reported Site Stool Culture PENDING Stool Specimen Description Final 07/24/17- 1654 ML Stool Color Brown Stool Form Nonformed Stool Consistency Liquid Shiga Toxin 1 2 PENDING C. difficile PCR PENDING Stool Occult Blood (1) PENDING * ML - [facility] . END OF REPORT DEPARTMENT OF PATHOLOGY, [address] [place] [address] Joshua Saldana M.D. Director [facility] # [id number] 7 SEE RESULT BELOW Name: MEGAN OGDEN : [address]: Shanda Chamorro NP Acct: [id number] Unit: [id number] AGE: 17 Location: [facility] Re07/24/17 SEX: F Status: REG REF SPEC: [id number] JEB: 07/24/17-[address] [facility] [address]: Shanda Chamorro CAR STARTER REQ: [id number] RECD: 07/24/17160 STATUS: COMP _ SOURCE: STOOL [facility]: ORDERED: Occult Bl, Diag, C. diff PCR, Stool Culture COMMENTS: [id number] Unable to perform Shiga Toxin testing. Specimen collection requirements were not met. Stool for Shiga Toxin testing must be received by the laboratory within 2 hours of collection or placed in [employer] transport medium. *please interpret stool culture result with caution* Stool specimen was not placed into appropriate transport medium within recommended time-frame. Testing may be less Sensitive. Call to Answering Service by Audanika at [phone] on 07/24/17. Call to Answering Service by Audanika at [phone] on 07/24/17. Verbal to Dr Mario Koch by Audanika at 2038 on 07/24/17. Results read back [...] CONTINUED ON NEXT PAGE DEPARTMENT OF PATHOLOGY, [address] [place] [address] Joshua Saldana M.D. Director [facility] # [id number] Patient: MEGAN OGDEN [id number] (Continued) Specimen: [id number] Collected: 07/24/17 Received: 07/24/17 (Continued) Procedure Result Reported Site Stool Culture Final (continued) 07/26/17- 120 Sensitivities not routinely performed on stool isolates, as antibiotics may prolong the carriage rate of bacteria. Please contact the microbiology lab if sensitivities are required. Stool Specimen Description Final 07/24/17- 2844 ML Stool Color Brown Stool Form Nonformed Stool Consistency Liquid Shiga Toxin 1 2 Final 07/24/17- 1656 ML Test not performed C. difficile PCR Final 07/24/17- 1731 ML Organism 1 027 Presumptive NEGATIVE Organism 2 Toxigenic C.diff POSITIVE Stool Occult Blood (1) Final 07/24/17- 165 ML Stool Occult Blood Negative Collection Date (1) 07/24/17 * ML - Main Lab . END OF REPORT DEPARTMENT OF PATHOLOGY, [address] [place] [address] Joshua Saldana M.D. Director [facility] # [id number] 8 Duck Bill Operator: [id number] JOHNNIE SABILLON 9 SEE RESULT BELOW Name: MEGAN OGDEN : [address]: Graham Reis MD Acct: [id number] Unit: [id number] AGE: 15 Location: [facility] Re02/02/16 SEX: F Status: DEP ER SPEC: [id number] JEB: 02/02/161205 [facility] DR: Graham Reis MD REQ: [id number] RECD: 02/03/16 STATUS: CHRISS MARTIN DR: Tera Yates MD _ SOURCE: URINE SPDESC: ORDERED: Urine Culture Procedure Result Reported Site Urine Culture Final 02/04/16- 1131 ML Organism 1 STAPHYLOCOCCUS SAPROPHYTICUS [place] Count 75-100,000 (Many) CFU/ML Routine sensitivity testing of urine isolates of S. saprophyticus is not advised, because infections respond to concentrations achieved in urine of antimicrobial agents commonly used to treat acute, uncomplicated urinary tract infections (e.g. nitrofurantoin, trimethoprim+/- sulfamethoxazole, or a fluoroquinolone). NCC April 2001 * ML - MAIN LAB ([facility]) . END OF REPORT * ML=Testing performed at Main Lab DEPARTMENT OF PATHOLOGY, [address] [place] [address] Joshua Saldana M.D. Director [facility] # [id number] 10 Female urine specimens have been self-validated by [facility] and have been granted conditional assay approval by [facility]. 11 SEE RESULT BELOW Name: MEGAN OGDEN : [address]: Anastasia Caruso MD Acct: [id number] Unit: [id number] AGE: 14 Location: [facility] Re10/03/14 SEX: F Status: DEP ER SPEC: [id number] JEB: 10/03/14-1530 [facility] DR: Anastasia Caruso MD REQ: [id number] RECD: 10/04/14-1100 STATUS: CHRISS MARTIN DR: Rosalind Meraz MD _ SOURCE: THROAT SPDESC: ORDERED: Throat Beta Str Procedure Result Verified Site Throat Beta Strep Culture Final 10/06/14- 0800 ML Negative For Group A Beta Streptococcus * ML - MAIN LAB ([facility]) . END OF REPORT * ML=Testing performed at Main Lab DEPARTMENT OF PATHOLOGY, [address] [place] [address] Joshua Saldana M.D. Director [facility] # [id number] Procedures Date Code Description Status 02/19/2017 96763 Vision Screening Completed 02/19/2017 84494 Admin Patient Focused Health Risk Assessment Instrument Completed 02/19/2017 32852 Admin Patient Focused Health Risk Assessment Instrument Completed 02/19/2017 72439 Brief Emotional/Behav Assessment W/ Scoring Doc Per Completed Standard Inst 02/19/2017 62692 Hearing Screen, Pure Tone, Air Completed 02/19/2017 11205 Collection Of Capillary Blood Specimen Completed 02/14/2016 77002 Vision Screening Completed 02/14/2016 56759 Hearing Screen, Pure Tone, Air Completed 02/14/2016 91634 Collection Of Capillary Blood Specimen Completed 01/17/2015 26311 Vision Screening Completed 01/17/2015 76641 Hearing Screen, Pure Tone, Air Completed 01/17/2015 08396 Collection Of Capillary Blood Specimen Completed Encounters Type Date Location Provider Dx Diagnosis Office Visit 12/18/2017 [facility] Hellen A09 Infectious 11:00a MD Michelle gastroenteritis and colitis, unspecified E86.0 Dehydration Office Visit 08/06/2017 8:45a [facility] Shanda A04.72 Enterocolitis d/t AMBROSE Chamorro Clostridium difficile, not spcf as recur Office Visit 07/24/2017 11:45a [facility] Shanda R19.7 Diarrhea, AMBROSE Chamorro unspecified R11.2 Nausea with vomiting, unspecified R10.30 Lower abdominal pain, unspecified Office Visit 02/19/2017 9:00a [facility] Tera Yates, Z00.00 Encntr for M.DSunil general adult medical exam w/o abnormal findings Z11.3 Encntr screen for infections w sexl mode of transmiss G44.209 Tension-type headache, unspecified, not intractable R45.82 Worries Z13.89 Encounter for screening for other disorder Z71.89 Other specified counseling Office Visit 06/06/2016 4:00p [facility] Clover J11.1 Flu due to Hermelinda Murphy unidentified influenza virus w oth resp manifest Office Visit 05/20/2016 12:00p [facility] Paramjit Drake, R39.15 Urgency of M.DSunil urination Office Visit 02/14/2016 9:30a [facility] Tera Silva Z00.129 Encntr for routine Hermelinda Yates child health exam w/o abnormal findings R51 Headache J30.9 Allergic rhinitis, unspecified Office Visit 07/19/2015 10:00a [facility] Tera Silva J00 Acute nasopharyngitis Hermelinda Yates [common cold] Office Visit 01/17/2015 11:15a [facility] Tera Silva Z00.129 Encntr for routine Hermelinda Yates child health exam w/o abnormal findings Office Visit 11/27/2014 2:00p [facility] Lisa Collazo V70.3 Examination Other Hermelinda [facility] For Administrative Purpose Office Visit 04/13/2014 1:45p [facility] Rosalind Meraz, 704.8 Hair & Hair Follicle Hermelinda Diseases Other Spec Plan of Treatment Future Appointment(s):12/23/2017 9:15 am - Tera Yates M.D. at [facility]03/04/2018 9:00 am - Tera Yates M.D. at [facility]12/18/2017 - Hellen Martinez, [id number] Infectious gastroenteritis and colitis, oyxopbytbatE95.0 Dehydration
[2018-01-12 11:53] LABS: ABS Basophils 0 10^3/ul (0-0.2); ABS Eosinophils 0 10^3/ul (0-0.6); ABS Lymphocytes 0.8 10^3/ul (1.0-4.8); ABS Monocytes 0.3 10^3/ul (0-0.8); ABS Neutrophils 9.9 10^3/ul (1.5-7.7); ABS Nucleated RBC 0 10^3/ul; Eosinophil % 0 % (0-6); Hematocrit 39 % (35-47); Hemoglobin 12.9 g/dl (12.0-16.0); Lymphocyte % 7.4 % (25-47); Mean Corpuscular HGB Conc 34 g/dl (31-36); Mean Corpuscular Hemoglobin 29 pg (27-31); Mean Corpuscular Volume 88 fL (80-97); Mean Platelet Volume 8.2 um3 (7.4-10.4); Nucleated Red Blood Cells % 0.1; Platelet Count 304 10^3/ul (150-450); Red Cell Distribution Width 13 % (10.5-15); White Blood Count 11.1 10^3/ul (3.5-10.8)
[2018-01-12 12:08] LABS: EGFR Non-African American 117.4 (>60)
[2018-01-12 15:15] VITALS: BP 122/67
--- NOTE | 2018-01-12 17:12 | ED ---
Nausea/Vomiting/Diarrhea HPI - HPI Summary HPI Summary: Patient is an otherwise healthy 17-year-old female presenting to the ED with acute nausea vomiting which began approximate 7 AM today. She states to approximate 3-4 episodes of vomiting this afternoon. She states she has had this in the past approximately 2 months ago, was seen here in the ED, however she also had diarrhea at that time. She denies any diarrhea on this visit. She denies any constipation, abdominal pain, urinary symptoms, back pain. She denies any chest pain or shortness of breath. She states she is otherwise healthy and takes no medications. She does not have any medications at home for nausea. Patient denies any recent dehydration. She denies eating any types of food or drink which is abnormal. She denies any marijuana use. Patient also denies any chance of . - History of Current Complaint Chief Complaint: EDNauseaVomitDiarrh Stated Complaint: VOMITING Time Seen by Provider: 01/12/18 11:08 Hx Obtained From: Patient Hx Last Menstrual Period: IUD ?: No Onset/Duration: Sudden Onset Timing: Constant Severity Initially: Moderate Severity Currently: Moderate Pain Intensity: 0 Pain Scale Used: 0-10 Numeric Aggravating Factor(s): Nothing Alleviating Factor(s): Nothing Vomiting Frequency: Every 15-60 minutes Nausea/Vomiting Duration: 0-12 hours - Risk Factors Influenza Risk Factors: Negative Surgical Obstruction Risk Factor(s): Negative - Allergies/Home Medications Allergies/Adverse Reactions: Allergies Allergy/AdvReac Type Severity Reaction Status Date / Time No Known Allergies Allergy Verified 01/12/18 11:11 Home Medications: Home Medications Ibuprofen TAB* [Motrin TAB* 800 MG] 800 mg PO TID PRN 01/12/18 [History Confirmed 01/12/18] PMH/Surg Hx/FS Hx/Imm Hx Previously Healthy: Yes Endocrine/Hematology History: Denies: Hx Diabetes, Hx Thyroid Disease Cardiovascular History: Denies: Hx Hypertension Respiratory History: Denies: Hx Asthma, Hx Chronic Obstructive Pulmonary Disease (COPD) GI History: Reports: Other GI Disorders - C-Diff Denies: Hx Ulcer Sensory History: Reports: Hx Contacts or Glasses Denies: Hx Hearing Aid Opthamlomology History: Reports: Hx Contacts or Glasses - Surgical History Surgery Procedure, Year, and Place: denies - Immunization History Hx Pertussis Vaccination: No Immunizations Up to Date: Yes Infectious Disease History: Yes Infectious Disease History: Denies: Hx Clostridium Difficile, Hx Hepatitis, Hx Human Immunodeficiency Virus (HIV), Hx of Known/Suspected MRSA, Hx Shingles, Hx Tuberculosis, Hx Known/ Suspected VRE, Hx Known/Suspected VRSA, History Other Infectious Disease, Traveled Outside the [place] in Last 30 Days - Family History Known Family History: Positive: Diabetes, Other - Migraines - Social History Occupation: Unemployed Lives: With Family Alcohol Use: None Hx Substance Use: No Substance Use Type: Reports: None Smoking Status (MU): Never Smoked Tobacco Have You Smoked in the Last Year: No Review of Systems Constitutional: Negative Negative: Fever, Chills, Fatigue, Skin Diaphoresis Negative: Palpitations, Chest Pain Negative: Shortness Of Breath, Cough Positive: Vomiting, Nausea. Negative: Abdominal Pain, Diarrhea Genitourinary: Negative Positive: no symptoms reported, see HPI Negative: Arthralgia, Myalgia Skin: Negative Neurological: Negative All Other Systems Reviewed And Are Negative: Yes Physical Exam Triage Information Reviewed: Yes Vital Signs On Initial Exam: Initial Vitals Temp Pulse Resp BP Pulse Ox 98.1 F 97 16 122/79 100 01/12/18 11:08 01/12/18 11:08 01/12/18 11:08 01/12/18 11:08 01/12/18 11:08 Vital Signs Reviewed: Yes Appearance: Positive: Well-Appearing, Well-Nourished Skin: Positive: Warm, Skin Color Reflects Adequate Perfusion Head/Face: Positive: Normal Head/Face Inspection Eyes: Positive: EOMI, CONOR Neck: Positive: Supple, No Lymphadenopathy Respiratory/Lung Sounds: Positive: Clear to Auscultation, Breath Sounds Present Cardiovascular: Positive: RRR, Pulses are Symmetrical in both Upper and Lower Extremities Musculoskeletal: Positive: Strength/ROM Intact Neurological: Positive: Sensory/Motor Intact, Alert, Oriented to Person Place, Time, Speech Normal Psychiatric: Positive: Normal, Affect/Mood Appropriate AVPU Assessment: Verbal (Reponds To) Diagnostics - Vital Signs Vital Signs Temp Pulse Resp BP Pulse Ox 01/12/18 15:13 98.3 F 80 18 122/67 100 01/12/18 14:49 81 94/49 100 01/12/18 14:19 81 137/87 99 01/12/18 14:00 85 99 01/12/18 13:48 71 112/62 99 01/12/18 13:18 85 125/72 99 01/12/18 13:00 86 100 01/12/18 12:48 79 122/60 100 01/12/18 12:18 92 121/79 99 01/12/18 12:00 66 99 01/12/18 11:48 85 138/69 99 01/12/18 11:19 80 100 01/12/18 11:18 92 131/87 100 01/12/18 11:08 98.1 F 97 16 122/79 100 - Laboratory Lab Results: Lab Results 01/12/18 01/12/18 01/12/18 Range/Units 11:42 11:42 11:42 WBC 11.1 H (3.5-10.8) 10^3/ul RBC 4.40 (4.00-5.40) 10^6/ul Hgb 12.9 (12.0-16.0) g/dl Hct 39 (35-47) % MCV 88 (80-97) fL MCH 29 (27-31) pg MCHC 34 (31-36) g/dl RDW 13 (10.5-15) % Plt Count 304 (150-450) 10^3/ul MPV 8.2 (7.4-10.4) um3 Neut % (Auto) 89.7 H (38-83) % Lymph % (Auto) 7.4 L (25-47) % [place] % (Auto) 2.6 (0-7) % Eos % (Auto) 0 (0-6) % Baso % (Auto) 0.3 (0-2) % Absolute Neuts (auto) 9.9 H (1.5-7.7) 10^3/ul Absolute Lymphs (auto) 0.8 L (1.0-4.8) 10^3/ul Absolute Monos (auto) 0.3 (0-0.8) 10^3/ul Absolute Eos (auto) 0 (0-0.6) 10^3/ul Absolute Basos (auto) 0 (0-0.2) 10^3/ul Absolute Nucleated RBC 0 10^3/ul Nucleated RBC % 0.1 Sodium 138 (135-145) mmol/L Potassium 3.4 L (3.5-5.0) mmol/L Chloride 105 (101-111) mmol/L Carbon Dioxide 19 L (22-32) mmol/L Anion Gap 14 H (2-11) mmol/L BUN 13 (6-24) mg/dL Creatinine 0.65 (0.51-0.95) mg/dL Est GFR ( Amer) 142.1 (>60) Est GFR (Non-Af Amer) 117.4 (>60) BUN/Creatinine Ratio 20.0 (8-20) Glucose 82 (70-100) mg/dL Lactic Acid 1.2 (0.5-2.0) mmol/L Calcium 9.8 (8.6-10.3) mg/dL Total Bilirubin 1.30 H (0.2-1.0) mg/dL AST 19 (13-39) U/L ALT 17 (7-52) U/L Alkaline Phosphatase 44 (34-104) U/L Total Protein 7.7 (6.4-8.9) g/dL Albumin 5.3 H (3.2-5.2) g/dL Globulin 2.4 (2-4) g/dL Albumin/Globulin Ratio 2.2 (1-3) Beta HCG, Quant < 0.60 mIU/mL Result Diagrams: 01/12/18 11:42 01/12/18 11:42 Lab Statement: Any lab studies that have been ordered have been reviewed, and results considered in the medical decision making process. Naus/Vom/Diarrhea Course/Dx - Course Course Of Treatment: Patient is evaluated for nausea vomiting. Labs obtained which shows slightly elevated white count at 11 likely secondary to nausea and vomiting. No diarrhea. She is given 2 L fluids and 4 mg Zofran with good relief. HCG negative. She states she is ready for discharge at this time. On physical examination, lungs CTA, RRR, no abdominal pain in all 4 quadrants, no CVA tenderness negative Lara sign and negative tenderness at McBurney's point. She will be discharged home with acute nausea vomiting. - Differential Dx/Diagnosis Provider Diagnoses: Nausea/Vomiting Condition At Discharge: Stable Discharge - Sign-Out/Discharge Documenting (check all that apply): Patient Departure - Discharge Plan Condition: Stable Disposition: HOME Prescriptions: Ondansetron ODT TAB* [Zofran 4 MG Odt TAB*] 4 mg PO Q6H PRN #12 tab.odt MDD 4 PRN Reason: Nausea Patient Education Materials: Acute Nausea and Vomiting (ED) Referrals: Tera Yates MD [Primary Care Provider] - Additional Instructions: Zofran as needed for nausea Drink plenty of fluids - Billing Disposition and Condition Condition: STABLE Disposition: Home
== END 2018-01-12 15:13 | disposition home or self-care (01) ==
LOC: ED 11:03
DX: R11.2 Nausea with vomiting, unspecified (principal)
CPT/HCPCS: 36415; 80053; 83605; 84702; 85025; 96361; 96374; 99283; J2405

== ENCOUNTER 2019-04-21 13:11 | Emergency (ER) | payer OTHER ==
--- NOTE | 2019-04-21 13:24 | UC ---
Eye Complaint HPI - HPI Summary HPI Summary: 19 yo female presents with stye. She tells me that she gets stye often in her left upper eyelid. 2 days ago she developed a stye here and this morning noticed another one emerge. She usually wears contacts, but has not for the last 2 days due to stye. She has been applying a warm compress with no change. She states she has used anbx eye drops in the past and it seems to clear the styes. She has an appt with her eye doctor on thursday. Denies cold symptoms, fever, vision changes, eye drainage. - History of Current Complaint Stated Complaint: EYE ISSUE Time Seen by Provider: 04/21/19 13:24 Hx Last Menstrual Period: IUD Onset/Duration: Sudden Onset Timing: Constant Severity Initially: Mild Severity Currently: Mild Pain Intensity: 3 Pain Scale Used: 0-10 Numeric - Allergies/Home Medications Allergies/Adverse Reactions: Allergies Allergy/AdvReac Type Severity Reaction Status Date / Time No Known Allergies Allergy Verified 04/21/19 13:21 PMH/Surg Hx/FS Hx/Imm Hx - Additional Past Medical History Additional PMH: None - Surgical History Surgical History: None Surgery Procedure, Year, and Place: denies - Family History Known Family History: Positive: Diabetes, Other - Migraines - Social History Alcohol Use: None Substance Use Type: None Smoking Status (MU): Never Smoked Tobacco Have You Smoked in the Last Year: No - Immunization History Most Recent Influenza Vaccination: Not the 2016/2017 Season Most Recent Tetanus Shot: unknown Vaccination Up to Date: Yes Review of Systems All Other Systems Reviewed And Are Negative: No Constitutional: Positive: Negative Skin: Positive: Negative Eyes: Positive: Other - stye ENT: Positive: Negative Respiratory: Positive: Negative Cardiovascular: Positive: Negative Neurological: Positive: Negative Psychological: Positive: Negative Physical Exam - Summary Physical Exam Summary: GENERAL: WDWN. No pain distress. SKIN: No rashes, sores, lesions, or open wounds. HEENT: Head: AT/NC Eyes: EOM intact. PERRLA. LEFT EYE: Upper eyelid with lateral 3mm stye. Medial aspect with 1mm stye. Conjunctiva clear without inflammation or discharge. No FBs appreciated Nose: NTTP maxillary and frontal sinus. NECK: Supple. Nontender. No lymphadenopathy. CHEST: No accessory muscle use. Breathing comfortably and in no distress. CV: Pulses intact. Cap refill <2seconds NEURO: Alert. PSYCH: Age appropriate behavior. Triage Information Reviewed: Yes Vital Signs: Vital Signs: Temp Pulse Resp BP Pulse Ox 98.4 F 69 18 108/60 100 04/21/19 13:22 04/21/19 13:22 04/21/19 13:22 04/21/19 13:22 04/21/19 13:22 Vital Signs Reviewed: Yes Eye Complaint Course/Dx - Course Course Of Treatment: Stye of left eye. Given that she has improved with anbx eye drops in the past, will rx for these today. Advised to keep appt with eye doctor on thursday and refrain from using her contacts until stye resolves. - Differential Dx/Diagnosis Provider Diagnosis: Stye Discharge ED - Sign-Out/Discharge Documenting (check all that apply): Patient Departure All imaging exams completed and their final reports reviewed: No Studies - Discharge Plan Condition: Stable Disposition: HOME Prescriptions: Ofloxacin 0.3% (Eye Drop) [Ocuflox OPTH 0.3% (Eye Drop)] 1 drop LEFT EYE QID #1 btl Patient Education Materials: Stye (ED) Referrals: No Primary Care Phys,NOPCP [Primary Care Provider] - Additional Instructions: Keep your appointment with your eye doctor next week - Billing Disposition and Condition Condition: STABLE Disposition: Home
[2019-04-21 13:25] VITALS: BP 108/60
== END 2019-04-21 13:34 | disposition home or self-care (01) ==
LOC: UCEAST 13:11
DX: H00.014 Hordeolum externum left upper eyelid (principal)
CPT/HCPCS: 99212; G0463

== ENCOUNTER 2019-08-04 13:21 | Emergency (ER) | payer OTHER ==
[2019-08-04] MEDS ORDERED: Famotidine IV 10 MG/ML 2 ml VIAL (20 mg) IV ONE (13:36)
[2019-08-04] MEDS ORDERED: Ondansetron 4 mg VIAL 2 MG/ML 2 ml VIAL IV ONE (13:36)
[2019-08-04] MEDS ORDERED: Lactated Ringers 1000 ml BAG 1,000 ML IV SCH (14:00)
[2019-08-04 14:19] LABS: ABS Lymphocytes 1.2 10^3/ul (1.0-4.8); ABS Monocytes 0.7 10^3/ul (0-0.8); Hematocrit 39 % (35-47); Hemoglobin 13.6 g/dL (12.0-16.0); Lymphocyte % 10.6 %; Mean Corpuscular HGB Conc 35 g/dL (31-36); Mean Corpuscular Hemoglobin 31 pg (27-31); Mean Corpuscular Volume 89 fL (80-97); Mean Platelet Volume 8.1 fL (7.4-10.4); Platelet Count 320 10^3/uL (150-450); Red Blood Count 4.41 10^6 /uL (3.70-4.87); Red Cell Distribution Width 13 % (10-15); White Blood Count 11.4 10^3/uL (3.5-10.8)
[2019-08-04 14:29] LABS: INR 1.16 (0.82-1.09)
[2019-08-04 14:37] LABS: ALT 30 U/L (7-52); AST 28 U/L (13-39); Albumin 5.4 g/dL (3.2-5.2); Albumin/Globulin Ratio 1.8 (1-3); Alkaline Phosphatase 39 U/L (34-104); Anion Gap 9 mmol/L (2-11); Blood Urea Nitrogen 12 mg/dL (6-24); C Reactive Protein < 1.00 mg/L (<8.01); CO2 Carbon Dioxide 21 mmol/L (22-32); Calcium 10.7 mg/dL (8.6-10.3); Chloride 106 mmol/L (101-111); EGFR Non-African American 97.5 (>60); Glucose 127 mg/dL (70-100); Magnesium 1.9 mg/dL (1.9-2.7); Potassium 3.7 mmol/L (3.5-5.0); Sodium 136 mmol/L (135-145); Total Protein 8.4 g/dL (6.4-8.9)
[2019-08-04 14:43] LABS: HCG Pregnancy < 0.60 mIU/mL
[2019-08-04 15:08] LABS: Urine Appearance Cloudy; Urine Bilirubin Negative (Negative); Urine Blood 1+ (Negative); Urine Color Amber; Urine Glucose Negative (Negative); Urine Ketones 1+ (Negative); Urine Nitrite Negative (Negative); Urine Protein 2+(100 mg/dL) (Negative); Urine Specific Gravity 1.025 (1.010-1.030); Urine Urobilinogen Negative (Negative)
[2019-08-04 15:12] LABS: Urine Bacteria Absent (Absent); Urine Red Blood Cell 2+(6-10/hpf) (Absent); Urine Squamous Epithelial Cell Present (Absent); Urine White Blood Cell Trace(0-5/hpf) (Absent)
[2019-08-04] MEDS ORDERED: NS 0.9% 1000 ml BAG 1,000 ML IV ONE (15:23)
[2019-08-04 17:15] VITALS: BP 105/61
== END 2019-08-04 17:14 | disposition home or self-care (01) ==
LOC: ED 13:21